=== PATIENT | male | born 1975 | race Caucasian/White ===

== ENCOUNTER 2016-02-21 15:29 | Outpatient (CLI) | payer OTHER | END 2016-02-21 15:30 | disposition home or self-care (01) | DX: M25.461 Effusion, right knee (principal); R60.0 Localized edema; M25.561 Pain in right knee ==

== ENCOUNTER 2018-07-23 21:17 | Emergency (ER) | payer OTHER ==
[2018-07-23 21:32] VITALS: BP 146/93
--- NOTE | 2018-07-23 23:58 | ED Physician Documentation ---
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 he is right hand dominant. Review of Systems Skin: reports: Laceration (s) Neurologic: denies: Focal weakness, Numbness PD PAST MEDICAL HISTORY - Past Medical History Past Medical History: Yes Cardiovascular: High cholesterol - Past Surgical History Past Surgical History: Yes - Present Medications Home Medications: Ambulatory Orders Medication Instructions Recorded Confirmed Amoxicillin 500 mg PO TID #21 tablet 11/06/13 Celecoxib [Celebrex] 200 mg 11/06/13 11/06/13 Simvastatin 40 mg 11/06/13 11/06/13 oxyCODONE [Roxicodone] 5 - 10 mg PO Q6H PRN #20 tablet 11/06/13 - Allergies Allergies/Adverse Reactions: Allergies Allergy/AdvReac Type Severity Reaction Status Date / Time No Known Drug Allergies Allergy Verified 11/06/13 11:08 - Social History Does the pt smoke?: No Smoking Status: Never smoker Does the pt drink ETOH?: Yes Does the pt have substance abuse?: No - Immunizations Immunizations are current?: Yes PD ED PE NORMAL - Vitals Vital signs reviewed: Yes - General General: Alert and oriented X 3, No acute distress, Well developed/nourished - Extremities Extremities: Normal ROM s pain (left thumb, fingers with FROM intact, including flexion/extension, and flexion with isolation of MCP/DIP/PIP joints. LTS intact, brisk capillary refill ) PD ED PE EXPANDED - Extremities AUNG UE/Hands Visual: 1 - laceration (2.5 cm length) Results - Vitals Vitals: Vital Signs - 24 hr 07/23/18 21:28 Temperature 36.7 C Heart Rate 82 Respiratory 20 Rate Blood Pressure 146/93 H O2 Saturation 100 Oxygen O2 Source Room air Procedures - Laceration (location) Hand left Length in cm: 2.5 Wound type: Linear Neurovascular status: Sensory intact, Motor intact, Vascular intact Tendon involvement: Tendon intact Anesthesia: Lidocaine 1% Wound Preparation: Chlorhexadine, Irrigated copiously NS, Wound explored, To the base. No: FB identified Skin layer closure: Nylon, Interrupted (running suture except for a single (solitary) simple interrupted stitch at distal end), Running, Size #-0 - enter number (4-0) Other: Patient tolerated well, No complications, Neurovascular intact, Dressing applied, Tetanus booster given Complexity: Simple PD MEDICAL DECISION MAKING - ED course Complexity details: considered differential, d/w patient Departure - Departure Disposition: 01 Home, Self Care Clinical Impression: Laceration of left hand Qualifiers: Encounter type: initial encounter Foreign body presence: without foreign body Qualified Code(s): S61.412A - Laceration without foreign body of left hand, initial encounter Condition: Good Instructions: ED Laceration Hand Follow-Up: Shay Sauer MD [Primary Care Provider] - (Follow up in 7-10 days for removal of the stitches) Discharge Date/Time: 07/24/18 00:38
[2018-07-24] MEDS ORDERED: LIDOCAINE 1% 2 ML VIAL SUBQ STA (00:01)
[2018-07-24] MEDS ORDERED: BACITRACIN OINT TOP STA (00:25)
[2018-07-24] MEDS ORDERED: TETANUS/DIPHTHERIA/PERTUSSIS 0.5 ML SYRINGE IM ONE (00:25)
== END 2018-07-24 00:38 | disposition home or self-care (01) ==
LOC: ED 21:17
DX: S61.412A Laceration without foreign body of left hand, initial encounter (principal); W27.8XXA Contact with other nonpowered hand tool, initial encounter; Y93.89 Activity, other specified; Y92.009 Unspecified place in unspecified non-institutional (private) residence as the place of occurrence of the external cause; Z23 Encounter for immunization
CPT/HCPCS: 12001; 90471; 90715; 99282; 99283; A9270

== ENCOUNTER 2018-11-25 11:19 | Day surgery (SDC) | payer OTHER ==
[~2018-11-25 11:19] MED LIST: CEFAZOLIN SODIUM IN 0.9 % NACL 2 GM/100 ML BAG IV ONE
[2018-11-25] MEDS ORDERED: MIDAZOLAM 2 MG/2 ML VIAL IVP ONE (11:20)
[2018-11-25] MEDS ORDERED: PROPOFOL 200 MG/20 ML VIAL IVP ONE (11:20)
[2018-11-25] MEDS ORDERED: DEXAMETHASONE 4 MG/ML VIAL IVP ONE (11:20)
[2018-11-25] MEDS ORDERED: LACTATED RINGERS 1,000 ML IV ONE ×3 (11:40→17:45)
--- NOTE | 2018-11-25 13:00 | ANESTHESIA ---
Pre-Anesthesia VS, & Labs - Diagnosis left biceps tendon tear - Procedure left biceps tendon repair Vital Signs: Temp Pulse Resp BP Pulse Ox 36.8 C 81 15 136/100 H 99 11/25/18 11:40 11/25/18 11:40 11/25/18 11:40 11/25/18 11:40 11/25/18 11:40 Height 5 ft 7 in Weight (kg) 85.73 kg Body Mass Index 29.7 - NPO >8 hours Home Medications and Allergies Home Medications: Ambulatory Orders Cyclobenzaprine [Flexeril] 10 mg PO 11/23/18 Omeprazole 20 mg PO 11/23/18 Tramadol HCl 50 mg PO BID 11/23/18 Celecoxib [Celebrex] 200 mg 11/06/13 Simvastatin 40 mg 11/06/13 Cyclobenzaprine [Flexeril] 10 mg PO 11/23/18 Omeprazole 20 mg PO 11/23/18 Tramadol HCl 50 mg PO BID 11/23/18 Allergies/Adverse Reactions: Allergies Allergy/AdvReac Type Severity Reaction Status Date / Time No Known Drug Allergies Allergy Verified 11/23/18 14:36 Anes History & Medical History - Anesthetic History Anesthesia Complications: reports: No previous complications - Medical History Cardiovascular: reports: None Pulmonary: reports: Sleep apnea, CPAP use Gastrointestinal: reports: GERD Urinary: reports: None Musculoskeletal: reports: Other Endocrine/Autoimmune: reports: None Skin: reports: None Smoking Status: Never smoker - Surgical History General: Other Orthopedic: Hip replacement, Arthroscopic surgery, Other Exam General: Alert Dental: WNL Mouth Opening: Greater than 4 Fingerbreadths Mallampati classification: II Thyromental Distance: greater than 6 cm Respiratory: Lungs clear Cardiovascular: Regular rate Plan Anesthesia Type: General Consent for Procedure(s) Verified and Reviewed: Yes Code Status: Attempt Resuscitation ASA classification: 2-Mild systemic disease Is this case an emergency?: No
[2018-11-25] MEDS ORDERED: BUPIVACAINE 0.25% PF 30 ML VIAL ONE (13:48)
[2018-11-25] MEDS ORDERED: ONDANSETRON 4 MG/2 ML VIAL IVP PRN (16:57)
[2018-11-25] MEDS ORDERED: oxyCODONE 5 MG TABLET PO PRN (16:57)
[2018-11-25] MEDS ORDERED: ONDANSETRON 4 MG/2 ML VIAL ONE (17:09)
--- NOTE | 2018-11-25 17:09 | OPERATIVE REPORT ---
Operative Report - Other Other Information/Narrative: Date of Surgery: 25 November 2018 Pre-Op Diagnosis: Left distal biceps rupture Procedure: Left distal biceps repair Postop Diagnosis: Same Primary Surgeon: Giacomo Daniels Secondary Surgeon: Joseph Monteiro Complications: None Tourniquet Time: 109 minutes EBL: 10 cc Implants: Fiber wire and tiger wire Postoperative Protocol: 2 weeks and splint at 90 degrees. From 2 to 6 weeks he will be in a range of motion brace starting at 40 degrees short of full exte nsion and allowing full flexion. This will be straightened out 10 degrees every week until he is fully straight at 6 weeks. Further details will be on a handout that I gave him. Indication For Surgery: 43-year-old male sustained a distal biceps tendon rupture while he was moving a log in his backyard. This was 5 days ago. He is an active individual. I discussed the rationale for repair he wanted to proceed with surgery I discussed the risks of damage to nerves and blood vessels. The risks, benefits, and alternatives were discussed. Risks include pain, bleeding, infection, damage to nearby structures, numbness, lack of symptom relief, implant complications, nonunion, need for further surgery, DVT, PE, stroke, and . Written consent was obtained. Procedure in Detail: The patient was met in the pre-operative hold area on the day of the procedure. The operative extremity was signed and questions were answered. The patient was brought to the operating room and a general anes thetic was administered. Supine position was used with a hand table and all bony prominences were padded. Standard prepping and draping was performed. A time out confirmed patient identification, laterality, procedure, allergies, antibiotics, and images. A sterile tourniquet was applied and an Esmarch was used to exsanguinate the limb and the tourniquet was elevated to 250 mmHg. A 5 cm incision was used from the anterior elbow crease toward the radial styloid. This was on the border of brachioradialis. Through this incision the proximal portion of the Avi approach was utilized. Identified to crossing veins into crossing arteries these were tied with silk and cauterized. I then bluntly dissected to the radial tuberosity. I placed a Hohmann ulnarly and used an [employer] radially. The forearm was supinated throughout the approach to protect the posterior interosseous nerve. No significant bleeding was encountered. I then clear the radial tuberosity of tendon stump with a naidu elevator and rondure. This roughened the surface of the bone up allowing for a good healing area. Fluoroscopy was used to confirm that I was at the radial tuberosity. With the forearm fully supinated I then drilled two 2.5 mm drill holes aiming ulnarly. I then used a right ankle and a spinal needle to blindly pass a PDS suture through these tunnels. These would be used as passing sutures later. I then finger dissected proximally under the level of the veins in through a small gap in the soft tissue to identify the proximal tendon stump. A 2 cm transverse counterincision was made at that location and the tendon was identified. Traction was pulled and I cleared off all nonviable tissue. I then placed a FiberWire and a tiger wire 5 bite to the Cheikh fashion up into the tendon and down leaving 4 strands coming out the end of the tendon. Because this was an acute repair there had not been much retraction. I then passed the sutures down through the proper tunnel towards the radial tuberosity repair site. It was found that the tendon could be brought to the posterior aspect of the tuberosity with the arm at 30 degrees of flexion. I then passed 1 tiger wire and 1 FiberWire through each hole. The arm was held in full supination at 30 degrees of flexion and the tiger wire was pulled on to toe the tendon down to the bone. The FiberWire was then tied with 7 reverse half hitches alternating posts. The tiger wire was then tied over this as well. The repair was found to be strong through pronation and supination. The wound was then irrigated copiously and packed with a gauze. The tourniquet was let down and pressure was held for 3 minutes. There was no significant bleeding. The skin was then closed with buried 2-0 Vicryl and running Monocryl. Steri-Strips and a sterile dressing was applied. A splint was applied with the elbow at 90 degrees and the forearm in a neutral position. He was awakened and transferred to the recovery room.
[2018-11-25] MEDS: fentaNYL 100 MCG/2 ML VIAL ONE ×3 (17:15→17:40)
[2018-11-25] MEDS ORDERED: METOCLOPRAMIDE 10 MG/2 ML VIAL ONE (17:41)
[2018-11-25 20:23] VITALS: BP 134/72
== END 2018-11-25 20:30 | disposition home or self-care (01) ==
LOC: SDS 11:19 → MS3 17:26 → SDS 20:30
PROVIDERS: ATTEND Orthopaedic Surgery
PROC: 0LM40ZZ Reattachment of Left Upper Arm Tendon, Open Approach (ICD-10-PCS; principal; 2018-11-25 13:00)
DX: S46.212A Strain of muscle, fascia and tendon of other parts of biceps, left arm, initial encounter (principal); G47.30 Sleep apnea, unspecified; K21.9 Gastro-esophageal reflux disease without esophagitis

== ENCOUNTER 2019-02-28 07:54 | Outpatient (CLI) | payer OTHER ==
--- NOTE | 2019-02-28 10:40 | MRI Report ---
Reason: POSTPROCEDURAL STATES Procedure Date: 02/28/2019 Accession Number: [id number] / [id number] Procedure: MRI - Knee RT W/O CPT Code: Final Report FULL RESULT: EXAM: RIGHT KNEE MRI WITHOUT CONTRAST EXAM DATE: 02/28/2019 08:21 AM. CLINICAL HISTORY: Increasing pain in the medial aspect of the right knee since arthroscopy January 23. COMPARISON: KNEE RT W/O 02/21/2016 3:45 PM. TECHNIQUE: Multiplanar, multisequence T1-weighted and fluid-sensitive sequences of the knee without contrast. Other: None. FINDINGS: Bones: There are small medial compartment osteophytes. There are no visible fractures. Articular Cartilage: Unremarkable. Medial Meniscus: The medial meniscus is intact. Lateral Meniscus: The lateral meniscus is intact. Cruciate Ligaments: The anterior and posterior cruciate ligaments are intact. Collateral Ligaments: The medial collateral and lateral collateral ligamentous structures are intact. Tendons: The quadriceps, patellar, semimembranosus, and popliteus tendons are unremarkable. Musculature: No edema or fatty atrophy. Other: There is a small joint effusion.. No popliteal cyst. No loose bodies. The medial and lateral retinacula are intact. There is scar tissue in the infrapatellar fat pad and the suprapatellar fat pad. IMPRESSION: 1. There is a small joint effusion. 2. No other significant abnormality. RADIA
== END 2019-02-28 07:55 | disposition home or self-care (01) ==
LOC: DI 07:54
PROVIDERS: ATTEND Orthopaedic Surgery
DX: M25.461 Effusion, right knee (principal)

== ENCOUNTER 2019-03-14 14:16 | Day surgery (SDC) | payer OTHER ==
[2019-03-14] MEDS ORDERED: LACTATED RINGERS 1,000 ML IV ONE (14:28)
[2019-03-14] MEDS ORDERED: CEFAZOLIN SODIUM IN 0.9 % NACL 2 GM/100 ML BAG IV ONE (14:29)
--- NOTE | 2019-03-14 14:53 | ANESTHESIA ---
Pre-Anesthesia VS, & Labs - NPO >8 hours (8am clears) <Kobi Hollis - Last Filed: 03/14/19 14:50> - Diagnosis right knee traumatic arthrotomy (Kobi Hollis) - Procedure Right knee arthroscopic debridement, laceration exploration and closure (Kobi Hollis) Vital Signs: Temp Pulse Resp BP Pulse Ox 36.5 C 92 15 146/94 H 99 03/14/19 14:39 03/14/19 14:39 03/14/19 14:39 03/14/19 14:39 03/14/19 14:39 Height 5 ft 10 in Weight (kg) 85.73 kg Body Mass Index 29.7 Home Medications and Allergies <Kobi Hollis - Last Filed: 03/14/19 14:50> <Deena Wilder - Last Filed: 03/14/19 14:58> Home Medications: Ambulatory Orders Cephalexin [Keflex] 500 mg PO 03/14/19 Celecoxib [Celebrex] 200 mg 11/06/13 Simvastatin 40 mg 11/06/13 Cyclobenzaprine [Flexeril] 10 mg PO 11/23/18 Omeprazole 20 mg PO 11/23/18 Tramadol HCl 50 mg PO BID 11/23/18 Cephalexin [Keflex] 500 mg PO 03/14/19 Allergies/Adverse Reactions: Allergies Allergy/AdvReac Type Severity Reaction Status Date / Time No Known Drug Allergies Allergy Verified 03/14/19 13:27 Anes History & Medical History - Medical History Cardiovascular: reports: None Pulmonary: reports: Sleep apnea, CPAP use Gastrointestinal: reports: GERD Urinary: reports: None Musculoskeletal: reports: Other Endocrine/Autoimmune: reports: None Skin: reports: None Smoking Status: Never smoker - Surgical History General: Other Orthopedic: Hip replacement, Arthroscopic surgery <Kobi Hollis - Last Filed: 03/14/19 14:50> - Anesthetic History Anesthesia Complications: reports: No previous complications <Deena Wilder - Last Filed: 03/14/19 14:58> Exam General: Alert Dental: WNL Mouth Opening: Greater than 4 Fingerbreadths Neck Mobility: Normal Mallampati classification: II Thyromental Distance: greater than 6 cm Respiratory: Lungs clear Cardiovascular: Regular rate, Normal S1, Normal S2 <Deena Wilder Last Filed: 03/14/19 14:58> Plan Anesthesia Type: General, Adductor Block (surgeon requests) Consent for Procedure(s) Verified and Reviewed: Yes Code Status: Attempt Resuscitation ASA classification: 2-Mild systemic disease Is this case an emergency?: Yes <Deena Wilder - Last Filed: 03/14/19 14:58>
[2019-03-14] MEDS ORDERED: EPINEPHrine 1 MG/ML AMP ONE (15:00)
[2019-03-14] MEDS ORDERED: BUPIVACAINE 0.25% PF 30 ML VIAL ONE (15:00)
[2019-03-14] MEDS ORDERED: MIDAZOLAM 2 MG/2 ML VIAL IVP ONE (15:14)
[2019-03-14] MEDS ORDERED: ONDANSETRON 4 MG/2 ML VIAL IVP ONE (15:14)
[2019-03-14] MEDS ORDERED: ACETAMINOPHEN 1,000 MG/100 ML 100 ML IV ONE (15:14)
[2019-03-14] MEDS ORDERED: ePHEDrine 50 MG/ML VIAL IVP ONE (15:14)
[2019-03-14] MEDS ORDERED: fentaNYL 100 MCG/2 ML VIAL IVP ONE (15:14)
[2019-03-14] MEDS ORDERED: LIDOCAINE-MPF 2% 5 ML VIAL IM ONE (15:14)
[2019-03-14] MEDS ORDERED: DEXAMETHASONE 4 MG/ML VIAL IVP ONE (15:14)
[2019-03-14] MEDS ORDERED: PROPOFOL 200 MG/20 ML VIAL IVP ONE (15:14)
[2019-03-14] MEDS ORDERED: BUPIVACAINE 0.25% PF 30 ML VIAL SUBQ ONE (16:51)
[2019-03-14] MEDS ORDERED: ONDANSETRON 4 MG/2 ML VIAL IVP PRN (16:58)
[2019-03-14] MEDS ORDERED: oxyCODONE 5 MG TABLET PO PRN (16:58)
[2019-03-14] MEDS ORDERED: KETOROLAC 15 MG/ML VIAL ONE (17:07)
--- NOTE | 2019-03-14 17:07 | OPERATIVE REPORT ---
Operative Report - Other Other Information/Narrative: Date of Surgery: 14 March 2019 Pre-Op Diagnosis: Right knee laceration with possible traumatic arthrotomy. Knee plica syndrome Procedure: Right knee arthroscopy with medial and lateral plica excision with fat pad debridement. Right knee laceration exploration with repair of muscle, fascia, and skin Postop Diagnosis: Right knee plica syndrome, right knee laceration, no traumatic arthrotomy Primary Surgeon: Giacomo Dainels Secondary Surgeon: None Complications: None EBL: 20 cc Indication For Surgery: 43-year-old man who sustained a chainsaw laceration to the right knee just above the patella while working in the yard yesterday. He presented to the emergency room where it was irrigated and closed. He presented to the orthopedics clinic and a saline load test appeared to be positive. He was indicated for surgery to prevent an infection within the knee and to potentially repair a quadriceps laceration if present. He also carries a diagnosis of knee plica syndrome per an MRI, history, and physical examination. He was scheduled for this procedure prior to the traumatic injury. The risks, benefits, and alternatives were discussed. Risks include pain, bleeding, infection, damage to nearby structures and cartilage, lack of symptom relief, need for further surgery, DVT, PE, stroke, and . Written consent was obtained. Examination Under Anesthesia: ROM equal to the contralateral side. Stable dial at 30 & 90 degrees. Stable to varus and valgus stressing at 0 & 30 degrees. Stable Jennifer. Stable Pivot shift. No mechanical sensation Arthroscopic Findings: Loose bodies -none Synovium -blood-tinged from prior injections. Abundant fat pad was seen adjacent to the patella, plica was seen laterally, the plica was debrided. No traumatic arthrotomy was seen Patella cartilage -mild grade 1 softening around the periphery, largely normal Trochlear cartilage -normal Medial femoral condyle cartilage -normal Medial tibial plateau cartilage -small grade 2/3 lesion adjacent to the tibial eminence, this was debrided with a shaver to a stable base Medial meniscus -the meniscus itself was normal. There is ossification of the meniscotibial ligament at the junction of the posterior horn and the body. There is nothing to be done about this Anterior cruciate ligament -normal Posterior cruciate ligament -normal Lateral femoral condyle cartilage -normal Lateral tibial plateau cartilage -normal Lateral meniscus -normal Procedure in Detail: The patient was met in the pre-operative hold area on the day of the procedure. The operative extremity was signed and questions were answered. The patient was brought to the operating room and a general anesthetic was administered. Supine position was used and bony prominences were padded. An examination under anesthesia was performed. Standard prepping and draping was performed. A time out confirmed patient identification, laterality, procedure, allergies, antibiotics, and images. An Esmarch was used to exsanguinate the limb and the tourniquet was elevated to 250 mmHg. A standard diagnostic arthroscopy of the knee was performed through anterolateral and anteromedial portal sites. The anteromedial portal was created under direct visualization after localizing with a spinal needle. The findings can be found above. I then proceeded to use a shaver to debride the tibial Plateau cartilage lesion. I then used the shaver both medially and laterally impinged fat pad and plica until free mobility of the patella without any impingement of the fat pad was seen on both sides. The knee was irrigated with 5 L of normal saline. The tourniquet was then dropped. I then closed and covered these incisions and remove the stitches from the laceration. The wound was explored and found to breach the fascia overlying the VMO with a small amount of muscle damage. There were 2 skin bleeders which were cauterized. I debrided all unhealthy portions of tissue and freshened up the skin edge where needed. The laceration had some complex angles due to it being from a chainsaw and these were negotiated carefully. The fascia was then closed with 0 PDS. The skin was then closed with nylon. 20 cc of quarter percent Marcaine was placed about the incisions and a sterile dressing was applied. A sterile dressing and compression stocking was placed. The patient was awakened and transferred to recovery in stable condition.
[2019-03-14 17:53] VITALS: BP 121/83
[2019-03-14] MEDS ORDERED: oxyCODONE 5 MG TABLET ONE (17:53)
== END 2019-03-14 14:17 | disposition home or self-care (01) ==
LOC: SDS 14:16
PROVIDERS: ATTEND Orthopaedic Surgery
PROC: 0KQS0ZZ Repair Right Lower Leg Muscle, Open Approach (ICD-10-PCS; principal; 2019-03-14 15:30)
PROC: 0SBC4ZZ Excision of Right Knee Joint, Percutaneous Endoscopic Approach (ICD-10-PCS; 2019-03-14 15:30)
DX: S86.821A Laceration of other muscle(s) and tendon(s) at lower leg level, right leg, initial encounter (principal); S81.011A Laceration without foreign body, right knee, initial encounter; M67.51 Plica syndrome, right knee; W29.3XXA Contact with powered garden and outdoor hand tools and machinery, initial encounter; Y92.007 Garden or yard of unspecified non-institutional (private) residence as the place of occurrence of the external cause

== ENCOUNTER 2019-12-16 07:10 | Outpatient (CLI) | payer OTHER ==
[2019-12-16] MEDS ORDERED: LIDOCAINE 1%-EPI 1:100000 20 ML MDV ONE (08:20)
[2019-12-16] MEDS ORDERED: GADOBUTROL 7.5 MMOL/7.5 ML VIAL ONE (08:23)
[2019-12-16] MEDS ORDERED: BUFFERED LIDOCAINE 10 ML SYRINGE ONE (08:25)
[2019-12-16] MEDS ORDERED: IOTHALAMATE MEGLUMINE 50 ML VIAL ONE (08:26)
[2019-12-16] MEDS ORDERED: iohexoL-240 10 ML VIAL IVP ONE (10:11)
[2019-12-16] MEDS ORDERED: GADOBUTROL 7.5 MMOL/7.5 ML VIAL IVP ONE (10:19)
[2019-12-16] MEDS: BUFFERED LIDOCAINE 10 ML SYRINGE IU ONE ×3 (10:22→10:25)
--- NOTE | 2019-12-16 11:46 | MRI Report ---
PROCEDURE: Cervical Spine W/O INDICATIONS: CERVICAL RADICULOPATHY TECHNIQUE: Noncontrast sagittal T1 spin echo and T2 fast spin echo, sagittal STIR, foraminal oblique sagittal T2 fast spin echo, and axial gradient echo or T2 fast spin echo through the cervical spine. COMPARISON: None. FINDINGS: Image quality: Excellent. Alignment and Curvature: There is normal bony alignment. Bone Marrow: Marrow demonstrates normal overall signal. Spinal Cord: Visualized spinal cord has normal size and signal. No cerebellar tonsillar herniation. Paraspinous Soft Tissues: No paravertebral masses. Prevertebral soft tissues are normal in thicknes s. C2-C3: Normal in appearance. C3-C4: Loss of disc signal. No central stenosis. Mild bilateral neural foraminal narrowing. No neur al compression. C4-C5: Loss of disc signal. Mild, diffuse disc bulge. Mild narrowing of the central canal. Severe ri ght and mild left neural foraminal narrowing with slight compression of the exiting right C5 nerve ro ot. C5-C6: Loss of disc signal. Mild, diffuse disc bulge. Mild narrowing of the central canal. Severe ri ght and moderate left neural foraminal narrowing with slight compression of the exiting right C6 nerv e root. C6-C7: Normal in appearance. C7-T1: Normal in appearance. IMPRESSION: 1. Multilevel degenerative disease. 2. Mild C4-C5 and C5-C6 central canal narrowing. 3. Severe right and mild left C4-C5 neural foraminal narrowing. Severe right and moderate left C5-C6 neural foraminal narrowing. 4. Slight compression of the exiting right C5 nerve root and the exiting right C6 nerve root secondar y to neural foraminal narrowing. Please correlate with clinical data. Reviewed by: Carey Ward MD, PhD on 12/16/2019 11:45 AM PST Approved by: Carey Ward MD, PhD on 12/16/2019 11:45 AM PST Station ID: [id number]
--- NOTE | 2019-12-16 12:39 | MRI Report ---
PROCEDURE: Arthrogram Shoulder LT INDICATIONS: LT SHLDR PAIN CONTRAST: dilute intra-articular Gadolinium contrast TECHNIQUE: After the administration of 12 mL of dilute intra-articular Gadolinium contrast, oblique coronal T1 a nd T2 spin echo with fat saturation, oblique sagittal T1 spin echo with and without fat saturation, o blique sagittal T2 fast spin echo with fat saturation, axial T1 spin echo with fat saturation through the shoulder. COMPARISON: Fluoroscopic images from arthrogram injection performed earlier the same day. Left shoul axel MRI dated 09/08/2013. FINDINGS: Image quality: Excellent. Rotator cuff: There is mild supraspinatus and infraspinatus tendinosis. The teres minor tendon is in tact. The subscapularis tendon is intact. Mild grade 2 fatty infiltration of the teres minor muscle i s most likely related to chronic denervation changes. No mass is seen along the course of the axillar y nerve. Bones and bursae: Postsurgical changes are seen from superolateral repair with suture material at th e superior glenoid. No acute bone marrow contusions or fractures. Chronic traction cystic changes are seen at the posterosuperior humeral head. Mild to moderate degenerative changes are seen at the acromioclavicular joint. A small amount of subacromial/subdeltoid fluid is considered normal in the p osterior humeral setting. No intra-articular loose body is identified. Capsule and soft tissues: Postsurgical changes are seen from superior labral repair. There is nondis placed tearing of the posterior to the inferior labrum with imbibition of intra-articular contrast ma terial. The superior labrum is intact. The long head of the biceps tendon demonstrates normal locatio n and morphology. The inferior glenohumeral ligament is normal in thickness. IMPRESSION: 1. Postsurgical changes from superior labral tear. The superior labrum is intact. There is nondispla mary lou tearing of the posterior to inferior labrum with imbibition of intra-articular contrast material. 2. Mild supraspinatus and infraspinatus tendinosis. No significant rotator cuff tendon tear is seen. 3. Mild grade 2 fatty infiltration of the teres minor muscle is most likely related to chronic dener vation changes. No mass is seen along the course of the axillary nerve. 4. [id number] acromioclavicular joint osteoarthrosis. Reviewed by: Ole Altamirano MD on 12/16/2019 12:37 PM PST Approved by: Ole Altamirano MD on 12/16/2019 12:37 PM PST Station ID: [id number]
--- NOTE | 2019-12-16 12:50 | MRI Report ---
PROCEDURE: Arthrogram Shoulder RT INDICATIONS: RT SHLDR PAIN CONTRAST: dilute intra-articular Gadolinium contrast TECHNIQUE: After the administration of 12 mL of dilute intra-articular Gadolinium contrast, oblique coronal T1 a nd T2 spin echo with fat saturation, oblique sagittal T1 spin echo with and without fat saturation, o blique sagittal T2 fast spin echo with fat saturation, axial T1 spin echo with fat saturation through the shoulder. COMPARISON: Fluoroscopic images from arthrogram injection performed earlier the same day. MR right joseph olson arthrogram dated 08/02/2013. FINDINGS: Image quality: Excellent. Rotator cuff: Mild to moderate supraspinatus and infraspinatus tendinosis. Teres minor tendon is int act. The subscapularis tendon is intact. There is mild grade 2 fatty infiltration of the teres minor muscle, which is most likely secondary to chronic denervation changes. No mass is seen along the cour se of the axillary nerve. Bones and bursae: Postsurgical changes are seen at the anterosuperior glenoid from prior labral repa ir. No acute bone marrow contusions or fractures. Chronic traction cystic changes are seen at the pos terosuperior humeral head. Mild to moderate degenerative changes are seen at the acromioclavicula r joint. A trace amount of subacromial/subdeltoid fluid is considered normal in the postsurgical sett ing. There is no intra-articular loose body. Capsule and soft tissues: Postsurgical changes are seen from anterosuperior labral repair. Mild hete rogeneous signal at the superior labrum may represent fibrovascular granulation tissue. No recurrent displaced labral tear is identified. The long head of the biceps tendon demonstrates low-grade partial intrasubstance tearing that does no t appear significantly changed when compared to the MRI from 08/02/2013. The inferior glenohumeral l igament is normal in thickness. IMPRESSION: 1. Postsurgical changes from anterosuperior labral repair with fibrovascular granulation tissue at t he superior labrum but no definite recurrent displaced labral tear. 2. Low-grade partial intrasubstance tearing of the intra-articular portion of the biceps long head t endon appears grossly stable when compared to the MRI from 08/02/2013. 3. Mild to moderate supraspinatus and infraspinatus tendinosis. No significant rotator cuff tendon t ear is seen. 4. Mild grade 2 fatty infiltration of the teres minor muscle is most likely secondary to chronic den ervation changes. No mass is seen along the course of the axillary nerve. 5. Mild to moderate acromioclavicular joint osteoarthrosis. Reviewed by: Ole Altamirano MD on 12/16/2019 12:49 PM PST Approved by: Ole Altamirano MD on 12/16/2019 12:49 PM PST Station ID: [id number]
--- NOTE | 2019-12-16 15:42 | XRAY Report ---
PROCEDURE: Arthrogram Needle Placement INDICATIONS: RT SHOULDER PAIN CONTRAST: CONTRAST: OMNI/JUS FLUOROSCOPY TIME: FLUORO TIME: 0.33 MIN and NUMBER IMAGES: 2 TECHNIQUE: The indications, alternatives, benefits, risks, and complications of the procedure were explained to the patient. Written informed consent was obtained and placed in the chart. The shoulder was examin ed fluoroscopically and a site for needle placement chosen for entry into the glenohumeral joint from an anterior approach. The skin was prepped and draped in the usual fashion, and 1% lidocaine infilt rated from skin down to joint capsule. A spinal needle was inserted into the glenohumeral joint, and a small amount of iodinated contrast media injected to confirm intra-articular placement of the need le tip. This was followed by approximately 12 mL dilute solution of a gadolinium containing MR contr ast agent. The needle was removed and a dressing was applied. The patient was given postprocedural instructions and sent to the MR suite for MR imaging. FINDINGS: A single fluoroscopic spot image demonstrates intra-articular location of injected iodinated contrast . IMPRESSION: Successful fluoroscopically guided administration of dilute Gadolinium solution into the shoulder aydee nt for MR arthrogram. Reviewed by: Vivienne Messina MD on 12/16/2019 3:41 PM PST Approved by: Vivienne Messina MD on 12/16/2019 3:41 PM PST Station ID: [id number]
== END 2019-12-16 07:11 | disposition home or self-care (01) ==
LOC: DI 07:10
PROVIDERS: ATTEND Orthopaedic Surgery
DX: M50.11 Cervical disc disorder with radiculopathy, high cervical region (principal); M48.02 Spinal stenosis, cervical region; S43.492A Other sprain of left shoulder joint, initial encounter; M19.012 Primary osteoarthritis, left shoulder; S46.111A Strain of muscle, fascia and tendon of long head of biceps, right arm, initial encounter; M19.011 Primary osteoarthritis, right shoulder
CPT/HCPCS: 23350; 72141; 73222; 77002; Q9966

== ENCOUNTER 2020-02-07 09:25 | Day surgery (SDC) | payer OTHER ==
[~2020-02-07 09:25] MED LIST changes: -CEFAZOLIN SODIUM IN 0.9 % NACL 2 GM/100 ML BAG IV ONE; +DEXAMETHASONE 4 MG/ML VIAL ONE; +EPINEPHrine 1 MG/ML AMP ONE; +KETOROLAC 30 MG/ML VIAL ONE; +LIDOCAINE-MPF 2% 5 ML VIAL ONE; +ONDANSETRON 4 MG/2 ML VIAL ONE; +PROPOFOL 200 MG/20 ML VIAL IVP ONE; +ROCURONIUM 50 MG/5 ML VIAL ONE
[2020-02-07] MEDS ORDERED: cefTRIAXone 2 GM VIAL ONE (09:28)
[2020-02-07] MEDS ORDERED: cefTRIAXone 2 GM in SODIUM CHLORIDE 0.9% MINIBAG 100 ML IV ONE (09:47)
[2020-02-07] MEDS ORDERED: LACTATED RINGERS 1,000 ML IV ONE ×2 (09:48→13:54)
--- NOTE | 2020-02-07 10:04 | ANESTHESIA ---
Pre-Anesthesia VS, & Labs - Diagnosis Right Shoulder Impingement and Bicep tendinitis - Procedure Right Shoulder Diagnostic Scope Vital Signs: Temp Pulse Resp BP Pulse Ox 36 C L 79 12 147/89 H 100 02/07/20 09:35 02/07/20 09:35 02/07/20 09:35 02/07/20 09:35 02/07/20 09:35 Height: 5 ft 6 in Weight (kg): 82.1 kg Body Mass Index: 29.2 BMI Classification: Overweight - NPO >8 hours - Lab Results Lab results reviewed: Yes Home Medications and Allergies Home Medications: Ambulatory Orders Acetaminophen [Tylenol Arthritis] 650 mg PO 01/18/20 Celecoxib [Celebrex] 200 mg 11/06/13 Simvastatin 40 mg 11/06/13 Omeprazole 20 mg PO 11/23/18 Tramadol HCl 50 mg PO BID 11/23/18 Acetaminophen [Tylenol Arthritis] 650 mg PO 01/18/20 Allergies/Adverse Reactions: Allergies Allergy/AdvReac Type Severity Reaction Status Date / Time No Known Drug Allergies Allergy Verified 03/14/19 13:27 Anes History & Medical History - Anesthetic History Anesthesia Complications: reports: No previous complications (Has had numerous orthopedic surgeries and blocks) Family history of Anesthesia Complications: Denies Family history of Malignant Hyperthermia: Denies - Medical History Cardiovascular: reports: None, High cholesterol Pulmonary: reports: Sleep apnea (Mild), CPAP use Gastrointestinal: reports: GERD (Controlled) Urinary: reports: None Musculoskeletal: reports: Other Endocrine/Autoimmune: reports: None Skin: reports: None Smoking Status: Never smoker Psychosocial: reports: No issues indicated - Surgical History General: Other Orthopedic: Hip replacement, Arthroscopic surgery, Spine surgery, Other (Numerous orthopedic surgeries) Exam General: Alert, Oriented x3, Cooperative, No acute distress Dental: WNL Mouth Opening: Greater than 4 Fingerbreadths Neck Mobility: Normal Mallampati classification: I Thyromental Distance: 4-6 cm Respiratory: Lungs clear Cardiovascular: Regular rate, Normal S1, Normal S2 Plan Anesthesia Type: General, Interscalene Block, Other (Cervical) Regional Block: Per Surgeon's request for Post Op pain control Consent for Procedure(s) Verified and Reviewed: Yes Code Status: Attempt Resuscitation ASA classification: 2-Mild systemic disease Is this case an emergency?: No (Discussed anesthetic, consent signed.)
[2020-02-07] MEDS ORDERED: NALOXONE 0.4 MG/ML VIAL IVP PRN (10:10)
[2020-02-07] MEDS ORDERED: fentaNYL 100 MCG/2 ML VIAL IVP PRN (10:10)
[2020-02-07] MEDS ORDERED: MORPHINE 2 MG/ML CARPUJECT IVP PRN (10:10)
[2020-02-07] MEDS ORDERED: ATROPINE ABBOJECT 1 MG/10 ML SYRINGE IVP PRN (10:10)
[2020-02-07] MEDS ORDERED: HYDROmorphone 0.5 MG/0.5 ML SYRINGE IVP PRN (10:10)
[2020-02-07] MEDS ORDERED: ePHEDrine 50 MG/ML VIAL IVP PRN (10:10)
[2020-02-07] MEDS ORDERED: METOCLOPRAMIDE 10 MG/2 ML VIAL IVP PRN (10:10)
[2020-02-07] MEDS ORDERED: ONDANSETRON 4 MG/2 ML VIAL IVP PRN ×2 (10:10→13:57)
[2020-02-07] MEDS ORDERED: ROPIVACAINE 0.5% PF 20 ML AMPULE ONE (10:12)
[2020-02-07] MEDS ORDERED: MIDAZOLAM 2 MG/2 ML VIAL ONE (10:25)
[2020-02-07] MEDS ORDERED: fentaNYL 100 MCG/2 ML VIAL ONE (10:25)
[2020-02-07] MEDS ORDERED: EPINEPHrine 1 MG/ML AMP IR ONE (10:45)
[2020-02-07] MEDS ORDERED: LACTATED RINGERS 1,000 ML IV SCH (11:00)
[2020-02-07] MEDS ORDERED: oxyCODONE 5 MG TABLET PO PRN (13:57)
--- NOTE | 2020-02-07 14:07 | OPERATIVE REPORT ---
Operative Report - Other Other Information/Narrative: date of Surgery: 07 February 2020 Pre-Op Diagnosis: Right AC joint arthritis, bursitis, biceps tendinitis, Procedure: Right shoulder arthroscopy with intra-articular debridement, Subacromial decompression, open distal clavicle excision, open biceps tenodesis Postop Diagnosis: Same Primary Surgeon: Giacomo Daniels Secondary Surgeon: None Complications: None EBL: 25 cc IMPLANTS: Fiber tack for biceps POSTOPERATIVE PLAN: 0-2 weeks-Sling at all times. Pendulum exercises 5 times per day. 2-6 weeks-Passive and active range of motion without limitations. 6-12 weeks-Gradually increase strengthening focusing on rotator cuff and scapular stabilizers per protocol. 16 weeks and beyond-Introduce dynamic activities. EXAMINATION UNDER ANESTHESIA: ROM: Full Anterior load and shift: Stable Posterior load and shift: Stable Inferior sulcus: Stable ARTHROSCOPIC FINDINGS: Rotator interval: Normal Biceps tendon & SLAP: Biceps tendon was thickened and longitudinally split. Unstable SLAP was present Subscapularis: Normal Rotator Cuff: Normal HAGL: Normal Labrum: Very mild fraying anteriorly and posteriorly but otherwise was healthy Glenoid Cartilage: There was a cartilage lesion anteriorly about 3:00 on the rim of the glenoid. Otherwise the cartilage was healthy Humeral Head Cartilage: Normal INDICATION FOR SURGERY: 44-year-old male with long-term right shoulder. He has a prior bursectomy and arthroscopic distal clavicle excision. He had continued pain at the AC joint and pain anteriorly over the course of the biceps tendon. Nonoperative managment failed to resolve symptoms. The risks, benefits, and alternatives were discussed. Risks included pain, bleeding, infection, damage to nearby structures, lack of symptom relief, implant complications, stiffness, need for further surgeries, DVT, PE, stroke, and even . He signed a written consent form. PROCEDURE IN DETAIL: The patient was met in the preoperative holding on the day of the procedure. Operative extremity was signed. Consent was verified. They desired to proceed. Regional anesthesia was obtained in the preoperative area. They were brought to the operating room and surrendered to anesthesia. Once general anesthesia was obtained they were placed in the lateral decubitus position with the operative side up. An axillary roll was placed and all bony prominences were well-padded. A surgical timeout was held to confirm the patient procedure, identity, procedure, laterality, allergies, images, and antibiotics. All were in agreement we proceeded. A standard diagnostic arthroscopy was performed utilizing posterior and anterosuperior portals. The anterosuperior portal was created under direct visualization and localized with a spinal needle. The 7 mm cannula was placed anteriorly. The findings of the diagnostic arthroscopy can be found above. A straight biter was used to truncate the biceps at its insertion. A shaver was then used to debride the superior labral tear back to a stable base. Minimal shaving was done in other locations of the labrum. SUBACROMIAL DECOMPRESSION: The instruments and cannula were then removed from the glenohumeral joint. The scope trocar was placed in the posterior portal and the acromion was felt. It was then inserted just under the acromion scraping along the bone until the CA ligament was felt. The scope trocar was then brought just lateral to the CA ligament and out the anterior incision. The cannula was then brought over the scope trocar arthroscope were inserted. The arthroscope was backed up until the shaver and arthroscope in the subacromial space. The prior bursectomy looked pretty good and there was a small amount of bursa to take. The rotator cuff looked excellent and did not have any tears. All soft tissue was debrided from the underside of the acromion and the posterior edge of the CA ligament was lifted. Care was taken to keep the deltoid fascia intact. The rotator cuff was then evaluated and there was no full-thickness tear. Final images were taken OPEN DISTAL CLAVICLE EXCISION: A 5 cm incision was made in line with the clavicle, centered over the acromioclavicular joint. Electrocautery was used to obtain hemostasis. Full-thickness skin flaps were made at the level of the fascia/joint capsule. A full-thickness longitudinal was made longitudinally to open the acromioclavicular joint. Electrocautery was used to dissect the joint capsule from the bony surfaces. 2 Homans were placed around the distal clavicle. Rongeur was used to debride the intra-articular disc. An 8 mm resection was measured and performed with a sagittal saw. Care was taken to ensure this cut was parallel to the joint surface. All sharp bony edges were rounded. A finger was placed with into the defect and the arm was adducted fully without any impingement in the joint. The joint was then irrigated copiously. A watertight capsular and fascial closure was performed with 0 Vicryl. MINI OPEN BICEPS TENODESIS: A 5 cm incision was made near the axillary fold centered over the pectoralis major tendon. Electrocautery was used to obtain hemostasis. The fascia was opened with dissection scissors. Blunt digital dissection was used to identify the intertubercular groove just under the pectoralis major tendon. The long head of the biceps tendon was visualized within this interval. The short head of the biceps was retracted with my finger and the right angle was used to deliver the tendon of the long head of the biceps out of the wound. A naidu elevator was then used to debride all synovial tissue from the intertubercular groove. A fibertack was placed high within the groove. Both limbs of the fibertack were pulled on and it was well fixed. I then whipstitched the biceps tendon starting 2 cm proximal to the musculotendinous junction down to the musculotendinous junction and back up to the same 2 cm location with a single limb of the suture tack. The other suture was placed once through the tendon at the 2 cm location. I then cut all excess tendon off. The suture limb that was passed the single time was then pulled on and this reduced the tendon nicely into the groove. The elbow was fully straightened and there was no excess tension on the repair site. I then tied 7 reverse half hitches alternating to secure the tendon in its place. The wound was then irrigated copiously. The portal sites were then closed with 3-0 Monocryl buried. Any open incisions were closed with 2-0 Vicryl in the dermis and a running 3-0 Monocryl in the skin. Mastisol and Steri-Strips were applied. A sterile dressing and a sling was applied. A sling was placed. The patient was awakened and transferred to the recovery room.
[2020-02-07 14:33] VITALS: BP 106/72
--- NOTE | 2020-02-07 15:10 | ANESTHESIA POST OP EVALUATION ---
Anesthesia Post Eval - Post Anesthesia Eval Vitals: Last Vital Signs Temp 36.2 C L 02/07/20 14:19 Pulse 76 02/07/20 14:33 Resp 16 02/07/20 14:33 BP 106/72 02/07/20 14:33 Pulse Ox 96 02/07/20 14:33 CV Function Including HR & BP: positive: Stable Pain Control: positive: Satisfactory Nausea & Vomiting: positive: Negative Mental Status: positive: Baseline Respiratory Status: Airway Patent Hydration Status: Satisfactory Anesthesia Complications: positive: None
== END 2020-02-07 09:26 | disposition home or self-care (01) ==
LOC: SDS 09:25
PROVIDERS: ATTEND Orthopaedic Surgery
DX: M75.41 Impingement syndrome of right shoulder (principal); M75.21 Bicipital tendinitis, right shoulder; S43.431A Superior glenoid labrum lesion of right shoulder, initial encounter; M19.011 Primary osteoarthritis, right shoulder; G47.30 Sleep apnea, unspecified; K21.9 Gastro-esophageal reflux disease without esophagitis; E78.00 Pure hypercholesterolemia, unspecified; Z96.649 Presence of unspecified artificial hip joint; X58.XXXA Exposure to other specified factors, initial encounter

== ENCOUNTER 2020-02-16 11:27 | Day surgery (SDC) | payer OTHER ==
[2020-02-16] MEDS ORDERED: LACTATED RINGERS 1,000 ML IV ONE ×2 (11:41→14:52)
[2020-02-16] MEDS ORDERED: cefTRIAXone 2 GM VIAL ONE (11:47)
[2020-02-16] MEDS ORDERED: BUPIVACAINE 0.25% PF 30 ML VIAL ONE (12:48)
--- NOTE | 2020-02-16 13:22 | ANESTHESIA ---
Pre-Anesthesia VS, & Labs - Diagnosis Right failed biceps tenidesis - Procedure right biceps tenodesis Vital Signs: Temp Pulse Resp BP Pulse Ox 36.2 C L 88 16 135/97 H 99 02/16/20 11:46 02/16/20 11:46 02/16/20 11:46 02/16/20 11:46 02/16/20 11:46 Height: 5 ft 6 in Weight (kg): 84 kg Body Mass Index: 29.9 BMI Classification: Overweight - NPO >8 hours Home Medications and Allergies Celecoxib [Celebrex] 200 mg 11/06/13 Simvastatin 40 mg 11/06/13 Omeprazole 20 mg PO 11/23/18 Tramadol HCl 50 mg PO BID 11/23/18 Acetaminophen [Tylenol Arthritis] 650 mg PO 01/18/20 Allergies/Adverse Reactions: Allergies Allergy/AdvReac Type Severity Reaction Status Date / Time No Known Drug Allergies Allergy Verified 03/14/19 13:27 Anes History & Medical History - Anesthetic History Anesthesia Complications: reports: No previous complications - Medical History Cardiovascular: reports: None, High cholesterol Pulmonary: reports: Sleep apnea, CPAP use Gastrointestinal: reports: GERD (well controlled) Urinary: reports: None Neuro: reports: None Musculoskeletal: reports: None, Other Endocrine/Autoimmune: reports: None Blood Disorders: reports: None Skin: reports: None Smoking Status: Never smoker Psychosocial: reports: No issues indicated History of Cancer?: No - Surgical History General: Other Orthopedic: Hip replacement, Arthroscopic surgery, Spine surgery, Other Exam General: Alert, Oriented x3, Cooperative, No acute distress Dental: WNL Mouth Openin Fingerbreadth Neck Mobility: Normal Mallampati classification: II Thyromental Distance: 4-6 cm Respiratory: Lungs clear, Normal breath sounds, No respiratory distress, No accessory muscle use Cardiovascular: Regular rate, Normal S1, Normal S2, No murmurs Mental/Cognitive Status: Alert/Oriented X3, Normal for patient Plan Anesthesia Type: General Consent for Procedure(s) Verified and Reviewed: Yes Code Status: Attempt Resuscitation ASA classification: 2-Mild systemic disease Is this case an emergency?: No
[2020-02-16] MEDS ORDERED: fentaNYL 100 MCG/2 ML VIAL ONE (13:35)
[2020-02-16] MEDS ORDERED: MIDAZOLAM 2 MG/2 ML VIAL ONE (13:35)
[2020-02-16] MEDS ORDERED: PROPOFOL 200 MG/20 ML VIAL IVP ONE (13:35)
[2020-02-16] MEDS ORDERED: LIDOCAINE-MPF 2% 5 ML VIAL ONE (13:36)
[2020-02-16] MEDS ORDERED: ROCURONIUM 50 MG/5 ML VIAL ONE (13:36)
[2020-02-16] MEDS ORDERED: BUPIVACAINE 0.25% PF 30 ML VIAL SUBQ ONE (14:02)
[2020-02-16] MEDS ORDERED: DEXAMETHASONE 4 MG/ML VIAL ONE (14:10)
[2020-02-16] MEDS ORDERED: ONDANSETRON 4 MG/2 ML VIAL ONE (14:10)
[2020-02-16] MEDS ORDERED: ePHEDrine 50 MG/ML VIAL IVP ONE (14:13)
[2020-02-16] MEDS ORDERED: PHENYLEPHRINE 10 MG/ML VIAL ONE (14:20)
[2020-02-16] MEDS ORDERED: SODIUM CHLORIDE 0.9% 10 ML ONE (14:20)
[2020-02-16] MEDS ORDERED: NEOSTIGMINE 1 MG/1 ML 10 ML MDV ONE (14:44)
[2020-02-16] MEDS ORDERED: GLYCOPYRROLATE 1 MG/5 ML VIAL ONE (14:44)
[2020-02-16] MEDS ORDERED: KETOROLAC 30 MG/ML VIAL ONE (14:47)
[2020-02-16] MEDS ORDERED: MORPHINE 2 MG/ML CARPUJECT IVP PRN (14:54)
[2020-02-16] MEDS ORDERED: fentaNYL 100 MCG/2 ML VIAL IVP PRN (14:54)
[2020-02-16] MEDS ORDERED: ePHEDrine 50 MG/ML VIAL IVP PRN (14:54)
[2020-02-16] MEDS ORDERED: NALOXONE 0.4 MG/ML VIAL IVP PRN (14:54)
[2020-02-16] MEDS ORDERED: ONDANSETRON 4 MG/2 ML VIAL IVP PRN ×2 (14:54→15:05)
[2020-02-16] MEDS ORDERED: HYDROmorphone 0.5 MG/0.5 ML SYRINGE IVP PRN (14:54)
[2020-02-16] MEDS ORDERED: METOCLOPRAMIDE 10 MG/2 ML VIAL IVP PRN (14:54)
[2020-02-16] MEDS ORDERED: ATROPINE ABBOJECT 1 MG/10 ML SYRINGE IVP PRN (14:54)
[2020-02-16] MEDS ORDERED: LACTATED RINGERS 1,000 ML IV SCH (15:00)
[2020-02-16] MEDS ORDERED: oxyCODONE 5 MG TABLET PO PRN (15:05)
--- NOTE | 2020-02-16 15:13 | OPERATIVE REPORT ---
Operative Report - Other Other Information/Narrative: Date of Surgery: 16 February 2020 Pre-Op Diagnosis: Failed right biceps tenodesis Procedure: Repeat right biceps tenodesis Postop Diagnosis: Same Primary Surgeon: Giacomo Daniels Secondary Surgeon: None Complications: None Tourniquet Time: None EBL: 10 cc Implants: Arthrex proximal biceps tenodesis button Postoperative Protocol: Passive range of motion as tolerated. No active flexion for 6 weeks. No heavy lifting for 3 months. Indication For Surgery: 44-year-old male who underwent a right shoulder arthroscopy with biceps tenodesis last week. Over the weekend he felt a pop and had a Hakeem deformity indicating failure. We discussed treatment options to include nonoperative management and repeat fixation. He desired repeat fixation. The risks, benefits, and alternatives were discussed. Risks include pain, bleeding, infection, damage to nearby structures, numbness, lack of symptom relief, implant complications, nonunion, need for further surgery, DVT, PE, stroke, and . Written consent was obtained. Procedure in Detail: The patient was met in the pre-operative hold area on the day of the procedure. The operative extremity was signed and questions were answered. The patient was brought to the operating room and a general anesthe tic was administered. Supine position was used and all bony prominences were padded. Standard prepping and draping was performed. A time out confirmed patient identification, laterality, procedure, allergies, antibiotics, and images. MINI OPEN BICEPS TENODESIS: The prior incision was used and extended 1 cm distally. Electrocautery was used to obtain hemostasis. Blunt digital dissection was used to identify the intertubercular groove just under the pectoralis major tendon. The anchor attached to the long head of the biceps tendon had pulled out of the bone and the tendon had retracted distally. It was still visible within the wound I was able to retrieve it by grabbing the sutures. A naidu elevator was then used to debride all synovial tissue from the intertubercular groove. It was assessed that my prior hole was too proximal as it measured approximately 3 cm proximal to the distal edge of the pectoralis major. I planned to place my whole more distal on this occasion. 5 bites with a fiber loop were placed in the 2 cm residual tendon. I then fully extended the arm and brought the tip of the tendon down to the bone in the intertubercular groove. I marked the location with good tension but not over tensioned. I then drilled a hole for the button unicortical, placed the button, and flipped the button. I pulled on both limbs of the #2 FiberWire to reduce the tendon. I then assessed tension and found that it was very nice. I placed one FiberWire suture through the tendon and then tied it with 7 reverse half hitches. It was well fixed. He was then taken through a full range of motion and fixation was adequate. The wound was then irrigated copiously and closed in a layered fashion with 2-0 Vicryl in the deep tissue, 2-0 Vicryl in the dermis, and a running Mon ocryl in the skin. Mastisol and Steri-Strips were applied. 20 cc of quarter percent Marcaine were placed under the incision and a sterile dressing was applied. The patient was awakened and transferred to the recovery room. A sling was applied.
[2020-02-16] MEDS ORDERED: HYDROmorphone 2 MG TABLET PO PRN (15:19)
[2020-02-16 15:56] VITALS: BP 127/80
--- NOTE | 2020-02-16 15:57 | ANESTHESIA POST OP EVALUATION ---
Anesthesia Post Eval - Post Anesthesia Eval Vitals: Last Vital Signs Temp 36.2 C L 02/16/20 15:55 Pulse 84 02/16/20 15:55 Resp 14 02/16/20 15:55 BP 127/80 02/16/20 15:55 Pulse Ox 96 02/16/20 15:55 CV Function Including HR & BP: positive: Stable Pain Control: positive: Satisfactory Nausea & Vomiting: positive: Negative Mental Status: positive: Patient Participates Respiratory Status: Airway Patent Hydration Status: Satisfactory Anesthesia Complications: positive: None
== END 2020-02-16 11:28 | disposition home or self-care (01) ==
LOC: SDS 11:27
PROVIDERS: ATTEND Orthopaedic Surgery
DX: T85.612A Breakdown (mechanical) of permanent sutures, initial encounter (principal); Y83.8 Other surgical procedures as the cause of abnormal reaction of the patient, or of later complication, without mention of misadventure at the time of the procedure; Y92.234 Operating room of hospital as the place of occurrence of the external cause; G47.30 Sleep apnea, unspecified; K21.9 Gastro-esophageal reflux disease without esophagitis; E78.00 Pure hypercholesterolemia, unspecified; E66.3 Overweight; Z68.29 Body mass index [BMI] 29.0-29.9, adult; Z79.899 Other long term (current) drug therapy
CPT/HCPCS: 24340; A9270; C1713; J7120